=== PATIENT | female | born 1945 | race Caucasian/White ===

== ENCOUNTER 2023-02-16 13:02 | Outpatient (REF) | payer BC, SELFPAY ==
--- NOTE | ~2023-02-16 | XR_ITS ---
EXAMINATION: XR FOOT, RIGHT CLINICAL INFORMATION: Cellulitis COMPARISON: None available. TECHNIQUE: AP, lateral, and oblique views of the right foot. FINDINGS: There are degenerative osteoarthritic changes of the first metatarsophalangeal joint. No destructive bony changes to suggest osteomyelitis. No soft tissue or subcutaneous emphysema. Bone alignments are satisfactory. XR/XR foot RT min 3V IMPRESSION: * No destructive bony changes to suggest osteomyelitis. 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
== END 2023-02-16 13:03 | disposition home or self-care (01) ==
LOC: HO.HMGCX 13:02
PROVIDERS: PCP Internal Medicine; Visit Provider Physician Assistant Medical
DX: L03.90 Cellulitis, unspecified (principal)
CPT/HCPCS: 73630

== ENCOUNTER 2024-02-18 11:55 | Outpatient (AMB) | payer BC, SELFPAY ==
--- NOTE | 2024-02-18 12:42 | AM.OFFWIN_ITS ---
Intake Vital Signs 02/18/24 12:43 Height 5 ft 9 in Weight 125 lb BMI 18.5 BP 110/66 Blood Pressure Location Lt brachial Position Sitting Pulse 86 Pulse Source Pulse Oximeter Temp 97.9 F Temp Source Temporal Artery Scan Pulse Oximetry (%) 96 Oxygen Delivery Method Room Air Intake Visit Reasons: [employer] ?Pneumonia Intake Note: pt is here today for pneumonia stared 2 weeks ago Patient Tobacco Use Status: Never used Tobacco Allergies nitrofurantoin [NITROFURANTOIN] Allergy (Unknown, Verified 02/18/24 13:13) DIARRHEA Medication List - Last Reconciled 02/18/24 by Jair Poole, JORDON alendronate 70 mg PO QWEEK amlodipine 5 mg PO DAILY lisinopril 20 mg PO BID Do you need a note to return to daycare/school/sports/work: No HPI HPI Comments History of Present Illness Details Patient is a 78-year-old female in today for a sick visit. Patient states that for the past 2 weeks she has developed sinus tenderness, sore throat, and cough. Patient has not tried any over the counter medications. She heads utilize saline spray with little effect. Denies chest pain, shortness a breath, dizziness, numbness, nausea, vomiting, diarrhea. Patient states her is is home with similar symptoms. [facility] Social History Patient Tobacco Use Status: Never used Tobacco Review of Systems Const All systems reviewed & are unremarkable except as noted in HPI and below Physical Exam Vital Signs: Last Vital Signs Temp 97.9 F 02/18/24 12:43 Pulse 86 02/18/24 12:43 BP 110/66 02/18/24 12:43 Pulse Ox 96 02/18/24 12:43 Oxygen Delivery Method Room Air 02/18/24 12:43 BMI result Body Mass Index 18.5 Vital signs reviewed stable Const Other: Appearance: Alert.? Oriented X3.? No acute distress.? Head: Normocephalic, atraumatic, no step-offs or deformities Eyes: Pupils equal, round and reactive to light.? ENT: Pharynx erythema. Right TM not visible due to cerumen impaction. Left TM visible and pearly avila. Neck: Normal inspection.? Neck supple.?Full ROM. CVS: Normal heart rate and rhythm.? Pulses normal.? Respiratory: No respiratory distress.? Breath sounds normal.? Neuro: Oriented X 3.? No motor deficit.? No sensory deficit. CN 2-12 intact Assessment & Plan Assessment & Plan (1) Sinusitis: Comment: Will give patient azithromycin, prednisone, benzonatate. Code(s): J32.9 - Chronic sinusitis, unspecified Qualifiers: Sinusitis location: other Chronicity: acute Recurrence: non-recurrent Qualified Code(s): J01.80 - Other acute sinusitis Plan: Take your medications as prescribed. If you were prescribed antibiotics today, it is important that you take your medication to their entirety, do not skip any doses, do not finish them early. Follow-up with your primary care provider this week. Return to the emergency department with new or worsening symptoms. Such as fevers, chills, chest pain, shortness of breath, nausea, vomiting, dizziness, headache, vision changes, lethargy In case of emergency call 911 Plan Follow-up with PCP Orders: Orders SARS-CoV2/FLU/RSV Today J06.9 - Acute upper respiratory infection, unspecified Medications: New benzonatate 100 mg PO BID PRN 14 caps 0RF cough prednisone 20 mg PO DAILY 5 tabs 0RF azithromycin For 250 mg dose pack: take 500 mg today (day 1), then 250 mg for 4 days (days 2-5) PO 6 tabs 0RF Coding Level of Care Code Est Pt Level 3 (62677) Diagnoses Acute non-recurrent sinusitis of other sinus J01.80 Sinusitis location: other Chronicity: acute Recurrence: non-recurrent Time Spent (min) 21
[2024-02-18 12:43] VITALS: BP 110/66; PULSE 86; TEMP 36.6; O2SAT 96; BMI 18.5
== END 2024-02-18 13:24 | disposition home or self-care (01) ==
PROVIDERS: PCP Internal Medicine; Visit Provider Nurse Practitioner Primary Care
DX: J01.80 Other acute sinusitis (principal)
CPT/HCPCS: 99213

== ENCOUNTER 2024-02-18 16:13 | Outpatient (REF) | payer BC, SELFPAY ==
[2024-02-18 17:05] LABS: Influenza A PCR NEGATIVE (Negative); Influenza B PCR NEGATIVE (Negative); Resp Syncy Virus RNA Qual PCR NEGATIVE (Negative); SARS COV2 PCR INHOUSE NEGATIVE (Negative)
== END 2024-02-18 16:14 | disposition home or self-care (01) ==
LOC: HO.LNP 16:13
PROVIDERS: Visit Provider Nurse Practitioner Primary Care
DX: Z11.52 Encounter for screening for COVID-19 (principal); J06.9 Acute upper respiratory infection, unspecified
CPT/HCPCS: 0241U